=== PATIENT | female | born 1960 | race Caucasian/White ===

== ENCOUNTER 2022-01-07 08:19 | Outpatient (CLI) | payer BC ==
[2022-01-07 08:58] LABS: #Basophils 0.1 10x3/uL (0.0-0.2); #Eosinphils 0.2 10x3/uL (0.0-0.5); #Monocytes 0.7 10x3/uL (0.0-1.1); #Neutrophils 2.8 10x3/uL (1.5-8.4); %Basophils 1.4 % (0.0-2.0); %Eosinophils 3.3 % (0.0-6.0); %Lymphocytes 46.7 % (18.0-47.0); %Monocytes 9.6 % (0.0-10.0); %Neutrophils 38.7 % (40.0-75.0); Hemoglobin 13.5 g/dL (12.0-15.5); Mean Corpuscular HGB CONC 34.2 g/dL (32.0-36.0); Mean Corpuscular Hemoglobin 32.5 pg (27.0-33.0); Mean Platelet Volume 9.2 fl (7.4-10.4); Platelet Count 326 10x3/uL (150-450); RBC Distribution Width 11.9 % (11.5-14.5); Red Blood Cell (RBC) Count 4.16 10x6/uL (3.90-5.03); White Blood Cell (WBC) Count 7.3 10x3/uL (3.5-10.5)
[2022-01-07 09:13] LABS: Anion Gap 14 mmol/L (10-20); BUN (Urea Nitrogen) 22 mg/dL (9.8-20.1); Calc. Creatinine Clearance 0 mL/min (70-130); Calcium 9.7 mg/dL (7.8-10.44); Carbon Dioxide 28 mmol/L (22-29); Chloride 101 mmol/L (98-107); Glucose 107 mg/dL (70-105); Potassium 4.6 mmol/L (3.5-5.1); Sodium 138 mmol/L (136-145)
[2022-01-07 16:59] LABS: SARS-CoV-2 PCR by NAA Not Detected (NotDetected)
== END 2022-01-07 08:20 | disposition home or self-care (01) ==
LOC: LABBT 08:19
PROVIDERS: ATTEND Orthopaedic Surgery Hand Surgery
DX: Z01.812 Encounter for preprocedural laboratory examination (principal); G56.21 Lesion of ulnar nerve, right upper limb; G56.01 Carpal tunnel syndrome, right upper limb; M65.4 Radial styloid tenosynovitis [de Quervain]; Z20.822 Contact with and (suspected) exposure to COVID-19
CPT/HCPCS: 80048; 85025; U0003; U0005

== ENCOUNTER 2022-01-09 07:59 | Day surgery (SDC) | payer BC ==
[2022-01-07 13:07] VITALS: BMI 31.3
[2022-01-09] MEDS ORDERED: Bupivacaine PF 0.5% 30 ML VIAL ONE ×2 (11:20→12:58)
[2022-01-09] MEDS ORDERED: Betamet Acet/Betamet Na Ph 30 MG/5 ML VIAL ONE (11:20)
[2022-01-09] MEDS ORDERED: Bacitracin Zinc Ointment 30 gm TUBE ONE (11:20)
[2022-01-09] MEDS ORDERED: Thrombin 5000 UNITS/5 ML VIAL ONE (11:20)
[2022-01-09] MEDS ORDERED: Neomycin-Polymyxin 1 ML AMP ONE (11:20)
[2022-01-09] MEDS ORDERED: Clindamycin/D5W 600 mg/50 ml Premix Bag ONE (12:15)
[2022-01-09] MEDS ORDERED: Midazolam HCl 2 mg/2 ml Vial ONE (12:16)
[2022-01-09] MEDS ORDERED: fentaNYL Citrate/PF 100 MCG/2 ML SYRINGE ONE (12:17)
[2022-01-09] MEDS ORDERED: Famotidine/PF 20 mg/2ml Vial ONE (12:27)
[2022-01-09] MEDS ORDERED: Dexamethasone 20 MG/5 ML VIAL ONE (12:30)
[2022-01-09] MEDS ORDERED: diphenhydrAMINE 50 MG/ML VIAL ONE (12:30)
[2022-01-09] MEDS ORDERED: PROPOFOL 200 MG/20 ML VIAL ONE (12:30)
[2022-01-09] MEDS ORDERED: Ondansetron PF 4 MG/2 ML Vial ONE (12:30)
[2022-01-09] MEDS ORDERED: PHENYLEPHRINE-NS 100 MCG/ML 10 ML SYRINGE ONE (12:30)
[2022-01-09] MEDS ORDERED: Lidocaine 1% PF 5 ML VIAL ONE (12:30)
[2022-01-09] MEDS ORDERED: Metoclopramide HCl 10 MG/2 ML VIAL ONE (12:30)
[2022-01-09] MEDS ORDERED: Ketorolac Tromethamine 30 MG/ML VIAL ONE (12:30)
[2022-01-09] MEDS ORDERED: ePHEDrine 50 MG/ML VIAL ONE (12:30)
[2022-01-09] MEDS ORDERED: traMADol HCl 50 MG TAB ONE (16:45)
== END 2022-01-09 17:40 | disposition home or self-care (01) ==
LOC: SDC 07:59
PROVIDERS: ATTEND Orthopaedic Surgery Hand Surgery
PROC: 0LT50ZZ Resection of Right Lower Arm and Wrist Tendon, Open Approach (ICD-10-PCS; principal; 2022-01-09)
PROC: 01N50ZZ Release Median Nerve, Open Approach (ICD-10-PCS; principal; 2022-01-09)
PROC: 01N40ZZ Release Ulnar Nerve, Open Approach (ICD-10-PCS; principal; 2022-01-09)
DX: M65.4 Radial styloid tenosynovitis [de Quervain] (principal); G56.01 Carpal tunnel syndrome, right upper limb; G56.21 Lesion of ulnar nerve, right upper limb; M25.832 Other specified joint disorders, left wrist; M25.831 Other specified joint disorders, right wrist; M18.11 Unilateral primary osteoarthritis of first carpometacarpal joint, right hand; G90.50 Complex regional pain syndrome I, unspecified; E78.5 Hyperlipidemia, unspecified; K21.9 Gastro-esophageal reflux disease without esophagitis; N18.30 Chronic kidney disease, stage 3 unspecified; Z79.899 Other long term (current) drug therapy; Z88.0 Allergy status to penicillin; Z88.1 Allergy status to other antibiotic agents; Z88.5 Allergy status to narcotic agent; Z88.8 Allergy status to other drugs, medicaments and biological substances
CPT/HCPCS: 88305; J0702; J1100; J1200; J1885; J2250; J2405; J2704; J2765; J3490; S0020; S0028

== ENCOUNTER 2022-08-11 09:34 | Emergency (ER) | payer BC | END 2022-08-11 09:55 | disposition home or self-care (01) | LOC: ERS 09:34 | DX: S01.01XD Laceration without foreign body of scalp, subsequent encounter (principal); E78.00 Pure hypercholesterolemia, unspecified ==

== ENCOUNTER 2023-05-31 17:00 | Outpatient (CLI) | payer BC | END 2023-05-31 17:01 | disposition home or self-care (01) | LOC: SLEEPLAB 17:00 | PROVIDERS: ATTEND Internal Medicine | DX: G47.33 Obstructive sleep apnea (adult) (pediatric) (principal); R53.83 Other fatigue; F41.8 Other specified anxiety disorders; E66.9 Obesity, unspecified; Z68.30 Body mass index [BMI] 30.0-30.9, adult | CPT/HCPCS: 95800 ==